=== PATIENT | female | born 1960 | race Asian ===

== ENCOUNTER 2019-01-25 18:52 | Emergency (ER) | payer OTHER ==
[~2019-01-25] VITALS: Ht 158 cm; Wt 56.0 kg
[2019-01-25 18:58] VITALS: BP 173/77; PULSE 70; TEMP 97.9
[2019-01-25] MEDS ORDERED: ASPIRIN 81M81 MG/TA2 PO (19:53)
[2019-01-25] MEDS ORDERED: LIPITOR 40MG TA40 MG PO (19:53)
[2019-01-25 19:58] LABS: BASO # 0.1 (0.0-0.2); BASO % 0.7 % (0.0-2.0); EOS # 0.2 (0.0-0.7); EOS % 2.4 % (0-4.0); GRAN # 2.7 (1.4-6.5); GRAN % 36.1 % (42.2-75.2); HEMOGLOBIN 11.9 g/dl (12.5-16.0); LYMPH # 3.7 (1.2-3.4); LYMPH % 49.7 % (20.0-51.0); MEAN CELL VOLUME 88 fl (80.0-100.0); MEAN CORPUSCULAR HEMOGLOBIN 30 pg (27.0-31.0); MEAN CORPUSCULAR HGB CONC 34 g/dl (33.0-37.0); MEAN PLATELET VOLUME 10.7 fl (7.4-10.4); MONO # 0.8 (0.1-0.6); PLATELET COUNT 275 K/mm3 (130-400); REDCELL DISTRIBUTION WIDTH-CV 11.9 % (11.5-14.5)
[2019-01-25 20:06] LABS: ALBUMIN 4.6 gm/dL (3.5-5.0); BILIRUBIN,TOTAL 0.4 mg/dL (0.0-1.0); CALCIUM 9.4 mg/dL (8.4-10.2); CREATININE, serum 0.69 (0.52-1.25); POTASSIUM 4.2 mmol/L (3.4-5.0)
[2019-01-25] MEDS ORDERED: HCTZ12.5TAB PO (21:08)
== END 2019-01-25 21:20 | disposition home or self-care (01) ==
LOC: COL.ER 18:52
PROVIDERS: Emergency Medicine
DX: R51 Headache (principal); R20.0 Anesthesia of skin; Z86.73 Personal history of transient ischemic attack (TIA), and cerebral infarction without residual deficits; Z79.82 Long term (current) use of aspirin